=== PATIENT | male | born 1990 | race Caucasian/White ===

== ENCOUNTER 2016-10-24 19:43 | Emergency (ER) | payer MEDICAID ==
[2016-10-24 20:18] VITALS: BP 104/74
--- NOTE | 2016-10-24 21:06 | EDM.PDOC ---
ED HPI GENERAL MEDICAL PROBLEM - General Chief Complaint: Upper Extremity Injury/Pain Stated Complaint: RIGHT SHOULDER PAIN Time Seen by Provider: 10/24/16 19:53 Source of Information: Reports: Patient, RN, RN Notes Reviewed History Limitations: Reports: No Limitations - History of Present Illness INITIAL COMMENTS - FREE TEXT/NARRATIVE: Patient presents to the ED at [facility] complaining of chronic right shoulder pain. Patient states the pain is constant to some degree and has progressively gotten worse. He has taken Tylenol/Motrin without any relief. He states "I waiting to see a specialist this December." Patient sees a provider at [facility]. No new trauma or injury. Patient denies any numbness, tingling, or paresthesia to the right upper extremity. Duration: Chronic, Getting Worse, Waxing/Waning Quality: Reports: Stabbing, Throbbing Severity: Severe Improves with: Reports: None Worsens with: Reports: Movement Context: Denies: Activity, Exercise, Lifting, Sick Contact, Trauma Associated Symptoms: Reports: No Other Symptoms Treatments FILM TOUCH UP INSPECTOR: Reports: Acetaminophen, Other (see below) Other Treatments FILM TOUCH UP INSPECTOR: Motrin, Sling Right shoulder Pain Score (Numeric/FACES): 7 - Related Data Allergies Allergy/AdvReac Type Severity Reaction Status Date / Time No Known Allergies Allergy Verified 10/24/16 20:20 Home Meds: Home Meds Triamcinolone Acetonide [Triamcinolone Acetonide 0.1% Crm] 1 applic TOP DAILY [History] Past Medical History Musculoskeletal History: Reports: Other (See Below) Other Musculoskeletal History: Chronic shoulder pain Dermatologic History: Reports: Eczema - Past Surgical History Musculoskeletal Surgical History: Reports: Other (See Below) Review of Systems - Review of Systems Review Of Systems: See Below Constitutional: Denies: Chills, Fever, Weakness Respiratory: Denies: Shortness of Breath, Cough Cardiovascular: Denies: Chest Pain, Palpitations Musculoskeletal: Reports: Shoulder Pain Skin: Reports: No Symptoms Neurological: Reports: No Symptoms. Denies: Headache, Numbness, Paresthesia, Tingling ED EXAM, GENERAL - Physical Exam Exam: See Below Exam Limited By: No Limitations General Appearance: Alert, No Apparent Distress Neck: Supple, Non-Tender Respiratory/Chest: No Respiratory Distress, Lungs Clear, Normal Breath Sounds Cardiovascular: Regular Rate, Rhythm Peripheral Pulses: 2+: Radial (R) Extremities: Normal Inspection, Non-Tender, Limited Range of Motion Neurological: Alert, Oriented Skin Exam: Warm, Dry, Intact, Normal Color, No Rash Course - Vital Signs Last Recorded V/S: Last Vital Signs Temp 36.9 C 10/24/16 19:45 Pulse 91 10/24/16 19:45 Resp 16 10/24/16 19:45 BP 104/74 10/24/16 19:45 Pulse Ox - Orders/Labs/Meds Orders: Active Orders 24 hr Category Date Time Status Shoulder Comp Rt [CR] Stat Exams 10/24/16 20:09 Taken Meds: Medications Discontinued Medications Generic Name Dose Route Start Last Admin Trade Name Freq PRN Reason Stop Dose Admin Tramadol HCl 1 packet 10/24/16 21:15 Take Home: Tramadol 50 Mg, 4 Tab Pack PO 10/24/16 21:16 ONETIME ONE - Radiology Interpretation Free Text/Narrative:: Shoulder Xray: Normal right shoulder xray See scanned report in EMR Departure - Departure Time of Disposition: 21:14 Disposition: Home, Self-Care 01 Condition: Good Clinical Impression: Chronic right shoulder pain - Discharge Information Instructions: Shoulder Pain, [id number] Referrals: Chinyere Hardin NP [Primary Care Provider] - Forms: ED Department Discharge Additional Instructions: 1. See your Primary as symptoms warrant - Problem List Review Problem List Initiated/Reviewed/Updated: Yes - My Orders Last 24 Hours: My Active Orders 10/24/16 20:09 Shoulder Comp Rt [CR] Stat - Assessment/Plan Last 24 Hours: My Active Orders 10/24/16 20:09 Shoulder Comp Rt [CR] Stat
[2016-10-24] MEDS ORDERED: Take Home: traMADol 50 MG, 4 Tab Pack PO ONE (21:15)
== END 2016-10-24 21:25 | disposition home or self-care (01) ==
LOC: VM.ED 19:43
DX: G89.29 Other chronic pain (principal); M25.511 Pain in right shoulder
CPT/HCPCS: 73030; 99283; A9270

== ENCOUNTER 2018-04-27 20:40 | Emergency (ER) | payer MEDICAID ==
[2018-04-27 20:50] VITALS: BP 127/97
[2018-04-27] MEDS ORDERED: diphenhydrAMINE 50 MG/ML SDV IM ONE (20:50)
[2018-04-27] MEDS ORDERED: Ondansetron 4 MG Tab.DIS PO ONE (20:51)
[2018-04-27] MEDS ORDERED: Ketorolac 30 MG/ML SDV IM ONE (20:51)
--- NOTE | 2018-04-28 00:58 | EDM.PDOC ---
ED HPI GENERAL MEDICAL PROBLEM - General Chief Complaint: Headache Stated Complaint: Headache Time Seen by Provider: 04/27/18 20:50 Source of Information: Reports: Patient History Limitations: Reports: No Limitations - History of Present Illness INITIAL COMMENTS - FREE TEXT/NARRATIVE: Pt. presents to ER with complaints of headache. Pt. states that it started at work tonight. He states that he is nauseated. + photophobia. No chest pain or SOB. No head trauma. No numbness, tinging in extremities. No fever or chills. No other acute neuro symptoms. Pt. states that he has a history of migraine and is not taking anything for it. He states that his migraines are infrequent. Denies any neck pain. Onset: Today Onset Date: 04/28/18 Duration: Constant Location: Reports: Head Treatments MOBILE MARKETING SPECIALIST: Reports: Other (see below) Other Treatments MOBILE MARKETING SPECIALIST: Ibuprofen 600mg occipital headache Pain Score (Numeric/FACES): 2 - Related Data Allergies Allergy/AdvReac Type Severity Reaction Status Date / Time No Known Allergies Allergy Verified 10/24/16 20:20 Home Meds: Home Meds Triamcinolone Acetonide [Triamcinolone Acetonide 0.1% Crm] 1 applic TOP DAILY [History] Etodolac 400 mg PO BID 04/27/18 [History] Past Medical History Musculoskeletal History: Reports: Other (See Below) Other Musculoskeletal History: Chronic shoulder pain Neurological History: Reports: Migraines Dermatologic History: Reports: Eczema - Past Surgical History Musculoskeletal Surgical History: Reports: Other (See Below) ED ROS GENERAL - Review of Systems Review Of Systems: See Below Constitutional: Reports: No Symptoms HEENT: Reports: No Symptoms Respiratory: Reports: No Symptoms Cardiovascular: Reports: No Symptoms Endocrine: Reports: No Symptoms GI/Abdominal: Reports: No Symptoms : Reports: No Symptoms Musculoskeletal: Reports: No Symptoms Skin: Reports: No Symptoms Neurological: Reports: Headache Psychiatric: Reports: No Symptoms Hematologic/Lymphatic: Reports: No Symptoms Immunologic: Reports: No Symptoms ED EXAM, GENERAL - Physical Exam Exam: See Below Exam Limited By: No Limitations General Appearance: Alert, WD/WN, No Apparent Distress Eye Exam: Bilateral Eye: EOMI, PERRL Throat/Mouth: Normal Inspection, Normal Lips, Normal Teeth, Normal Gums, Normal Oropharynx, Normal Voice, No Airway Compromise Head: Atraumatic, Normocephalic Neck: Normal Inspection, Supple, Non-Tender, Full Range of Motion Respiratory/Chest: No Respiratory Distress, Lungs Clear, Normal Breath Sounds, No Accessory Muscle Use, Chest Non-Tender Cardiovascular: Normal Peripheral Pulses, Regular Rate, Rhythm, No Edema, No Gallop, No JVD, No Murmur, No Rub Peripheral Pulses: 4+: Radial (L), Radial (R) GI/Abdominal: Normal Bowel Sounds, Soft, Non-Tender, No Organomegaly, No Distention, No Abnormal Bruit, No Mass (Male) Exam: Deferred Rectal (Males) Exam: Deferred Back Exam: Normal Inspection, Full Range of Motion, NT Extremities: Normal Inspection, Normal Range of Motion, Non-Tender, Normal Capillary Refill, No Pedal Edema Neurological: Alert, Oriented, CN II-XII Intact, Normal Cognition, Normal Gait, Normal Reflexes, No Motor/Sensory Deficits Psychiatric: Normal Affect, Normal Mood Skin Exam: Warm, Dry, Intact, Normal Color, No Rash Course - Vital Signs Last Recorded V/S: Last Vital Signs Temp 37.6 C 04/27/18 20:45 Pulse 70 04/27/18 20:45 Resp 18 04/27/18 20:45 BP 127/97 H 04/27/18 20:45 Pulse Ox - Orders/Labs/Meds Meds: Medications Discontinued Medications Generic Name Dose Route Start Last Admin Trade Name Kye PRN Reason Stop Dose Admin Chlorpromazine HCl 50 mg 04/27/18 20:50 04/27/18 21:04 Thorazine IM 04/27/18 20:51 50 mg ONETIME ONE Administration Diphenhydramine HCl 50 mg 04/27/18 20:50 04/27/18 21:02 Benadryl IM 04/27/18 20:51 50 mg ONETIME ONE Administration Ketorolac Tromethamine 30 mg 04/27/18 20:51 04/27/18 21:00 Toradol IM 04/27/18 20:52 30 mg ONETIME ONE Administration Ondansetron HCl 4 mg 04/27/18 20:51 04/27/18 20:58 Zofran Odt PO 04/27/18 20:52 4 mg ONETIME ONE Administration Departure - Departure Time of Disposition: 21:55 Disposition: Home, Self-Care 01 Condition: Good Clinical Impression: Migraine - Discharge Information Instructions: Migraine Headache, [id number] Referrals: Chinyere Hardin NP [Primary Care Provider] - Forms: ED Department Discharge Additional Instructions: Home to rest. Drink plenty of fluids. Follow-up in clinic in 7-10 days for recheck. - Assessment/Plan Plan: Home to rest. Drink plenty of fluids. Follow-up in clinic in 7-10 days for recheck.
== END 2018-04-27 21:55 | disposition home or self-care (01) ==
LOC: VM.ED 20:40
DX: G43.909 Migraine, unspecified, not intractable, without status migrainosus (principal)
CPT/HCPCS: 96372; 99283; A9270; J1200; J1885; J3230

== ENCOUNTER 2018-09-04 10:06 | Emergency (ER) | payer MEDICAID | END 2018-09-04 11:00 | disposition left against medical advice (07) | LOC: VM.ED 10:06 | DX: Z53.21 Procedure and treatment not carried out due to patient leaving prior to being seen by health care provider (principal) ==